=== PATIENT | female | born 2000 | race Caucasian/White ===

== ENCOUNTER 2020-12-09 17:00 | Emergency (ER) | payer OTHER ==
[~2020-12-09] VITALS: Ht 157.5 cm; Wt 49.9 kg
== END 2020-12-09 17:16 | disposition home or self-care (01) ==
LOC: ER 17:00
DX: R56.9 Unspecified convulsions (principal)
CPT/HCPCS: 99284

== ENCOUNTER → 2020-12-29 | Outpatient (CLI) | payer OTHER ==
[2020-12-30 09:31] LABS: Candida species (DNA Probe) Negative (NEGATIVE); G. vaginalis (DNA Probe) Negative (NEGATIVE); T. vaginalis (DNA Probe) Negative (NEGATIVE)
== END ==
LOC: LAB SHORT 13:51 → LAB 13:51
PROVIDERS: Advanced Practice Midwife
DX: N76.0 Acute vaginitis (principal)
CPT/HCPCS: 87480; 87510; 87660

== ENCOUNTER → 2021-01-13 | Outpatient (CLI) | payer OTHER ==
[2021-01-14 14:51] LABS: Candida species (DNA Probe) Negative (NEGATIVE); G. vaginalis (DNA Probe) Negative (NEGATIVE); T. vaginalis (DNA Probe) Negative (NEGATIVE)
== END | disposition home or self-care (01) ==
LOC: LAB 10:00 → LAB SHORT 10:00
PROVIDERS: Advanced Practice Midwife
DX: Z01.419 Encounter for gynecological examination (general) (routine) without abnormal findings (principal); N94.10 Unspecified dyspareunia
CPT/HCPCS: 87480; 87510; 87660; G0123

== ENCOUNTER → 2025-03-22 | Outpatient (CLI) | payer OTHER | END | disposition home or self-care (01) | LOC: LAB 15:42 → LAB SHORT 15:42 | PROVIDERS: Family Medicine | DX: Z01.419 Encounter for gynecological examination (general) (routine) without abnormal findings (principal) | CPT/HCPCS: G0145 ==